=== PATIENT | male | born 1940 | race Caucasian/White ===

== ENCOUNTER 2017-02-20 10:51 | Outpatient (CLI) | payer MEDICARE | END 2017-02-20 10:52 | disposition home or self-care (01) | LOC: MADLAB 10:51 | PROVIDERS: ATTEND Urology | DX: C61 Malignant neoplasm of prostate (principal) | CPT/HCPCS: 36415; 84153 ==

== ENCOUNTER 2017-04-03 10:31 | Outpatient (CLI) | payer MEDICARE ==
[2017-04-03 11:06] LABS: Hemoglobin A1c 7.5 % (4.0-6.0)
[2017-04-03 11:19] LABS: ALT (SGPT) 21 U/L (8-55); AST (SGOT) 15 U/L (5-34); Albumin 3.9 g/dL (3.4-4.8); Alkaline Phosphatase 84 U/L (40-150); Anion Gap 11 mmol/L (10-20); BUN (Urea Nitrogen) 13 mg/dL (8.4-25.7); Bilirubin, Total 0.6 mg/dL (0.2-1.2); Calc. Creatinine Clearance 0 mL/min (70-130); Calcium 9.3 mg/dL (7.8-10.44); Carbon Dioxide 26 mmol/L (23-31); Chloride 103 mmol/L (98-107); Cholesterol 166 mg/dl (< 200 Desired); Estimated GFR-MDRD 76; Globulin 3.3 g/dL (2.4-3.5); Glucose 211 mg/dL (83-110); HDL Cholesterol 33 mg/dL (>60 Neg Risk); LDL Cholesterol, Calculated 88 mg/dL; Potassium 3.8 mmol/L (3.5-5.1); Protein, Total 7.2 g/dL (5.8-8.1); Sodium 136 mmol/L (136-145); Triglycerides 226 mg/dL (Less than 150)
[2017-04-03 11:22] LABS: #Basophils 0.1 thou/uL (0.0-0.2); #Eosinphils 0.1 thou/uL (0.0-0.7); #Lymphocytes 1.5 thou/uL (1.20-3.40); #Monocytes 0.5 thou/uL (0.11-0.59); #Neutrophils 4.7 thou/uL (1.40-6.50); %Basophils 1.2 % (0.0-1.0); %Monocytes 7.3 % (0.0-10.0); %Neutrophils 67.5 % (42.0-75.0); Hemoglobin 15.6 g/dL (14.0-18.0); Mean Corpuscular HGB CONC 34.3 g/dL (32.0-36.0); Mean Corpuscular Hemoglobin 29.8 pg (27.0-31.0); Mean Corpuscular Volume 86.8 fl (80.0-94.0); Mean Platelet Volume 7.5 fL (7.4-10.4); Platelet Count 241 thou/uL (130-400); RBC Distribution Width 11.5 % (11.5-14.5); Red Blood Cell (RBC) Count 5.25 mill/uL (4.70-6.10)
[2017-04-03 16:11] LABS: Thyroid Stimulating Hormone 2.4646 uIU/mL (0.35-4.94)
[2017-04-03 17:26] LABS: Creatinine, Urine 35.11 mg/dL (63-166); Microalbumin Urine 9.6 mg/dL (0.5-50.0); Microalbumin/Creat Ratio 273.4 mg/g (Less than 30)
[2017-04-03 17:40] LABS: Vitamin D, 25 Hydroxy 33.7 ng/ml (> 30.0)
== END 2017-04-03 10:32 | disposition home or self-care (01) ==
LOC: MADLABBHPM 10:31
PROVIDERS: ATTEND Family Medicine
DX: E78.5 Hyperlipidemia, unspecified (principal); I10 Essential (primary) hypertension; M11.20 Other chondrocalcinosis, unspecified site; E11.9 Type 2 diabetes mellitus without complications; K21.9 Gastro-esophageal reflux disease without esophagitis
CPT/HCPCS: 36415; 80053; 80061; 82043; 82306; 83036; 84443; 85025

== ENCOUNTER 2018-07-10 14:46 | Outpatient (CLI) | payer MEDICARE ==
--- NOTE | 2018-07-10 15:53 | RAD ---
RIGHT ANKLE THREE VIEWS: History: 78-year-old male with right ankle injury following a twisting injury two days ago. FINDINGS: Medial and more marked lateral diffuse swelling of the lower leg and ankle. Nondisplaced oblique frac ture through the distal fibula. 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 No talar dome osteo chondral lesion. IMPRESSION: Nondisplaced fracture through the distal fibula with soft tissue swelling. POS: [facility]
== END 2018-07-10 14:47 | disposition home or self-care (01) ==
LOC: MADRAD 14:46
PROVIDERS: ATTEND Family Medicine
DX: M25.571 Pain in right ankle and joints of right foot (principal); S82.831A Other fracture of upper and lower end of right fibula, initial encounter for closed fracture

== ENCOUNTER 2018-08-28 13:34 | Outpatient (CLI) | payer MEDICARE ==
--- NOTE | 2018-08-28 15:59 | RAD ---
TWO VIEWS RIGHT ANKLE: DATE: 08/28/2018. HISTORY: Followup fracture right ankle. COMPARISON: 07/10/2018. FINDINGS: The fracture is better seen on the oblique view on the prior exam. The obliquely oriented fracture o f the fibula better seen on the oblique view of the right ankle on the prior study is not definitivel y visualized on this exam. No obvious fracture is seen. There is a questionable subtle lucency whic h may represent the previously seen fracture in the distal right fibula. No significant callus forma tion is appreciated. Ankle mortise is congruent. Plantar calcaneal enthesophyte is present. Vascul ar calcifications are seen about the ankle. IMPRESSION: 1. No obvious fracture is appreciated. There is suggestion of a subtle lucency in the region of the previously noted fracture of the right ankle which could be related to residual fracture, but there is certainly no displaced fracture visualized. There has been improvement in subcutaneous soft tissu e swelling about the ankle. POS: [facility]
== END 2018-08-28 13:35 | disposition home or self-care (01) ==
LOC: MADRAD 13:34
PROVIDERS: ATTEND Orthopaedic Surgery
DX: S82.64XA Nondisplaced fracture of lateral malleolus of right fibula, initial encounter for closed fracture (principal); M25.471 Effusion, right ankle

== ENCOUNTER 2021-01-04 14:54 | Outpatient (CLI) | payer MEDICARE ==
[2021-01-04 21:35] LABS: #Basophils 0.1 thou/uL (0.0-0.2); #Eosinphils 0.1 thou/uL (0.0-0.7); #Lymphocytes 2.1 thou/uL (1.20-3.40); #Monocytes 0.6 thou/uL (0.11-0.59); #Neutrophils 6.5 thou/uL (1.40-6.50); %Basophils 0.6 % (0.0-1.0); %Eosinophils 1.6 % (0.0-10.0); %Lymphocytes 22.2 % (21.0-51.0); %Neutrophils 69.7 % (42.0-75.0); Hemoglobin 15.9 g/dL (14.0-18.0); Mean Corpuscular HGB CONC 34.1 g/dL (32.0-36.0); Mean Corpuscular Hemoglobin 30.7 pg (27.0-31.0); Mean Corpuscular Volume 89.8 fL (78.0-98.0); Mean Platelet Volume 7.7 fL (7.4-10.4); Platelet Count 283 thou/uL (130-400); RBC Distribution Width 11.8 % (11.5-14.5); Red Blood Cell (RBC) Count 5.18 mill/uL (4.70-6.10); White Blood Cell (WBC) Count 9.3 thou/uL (4.8-10.8)
[2021-01-04 21:50] LABS: ALT (SGPT) 15 U/L (8-55); AST (SGOT) 15 U/L (5-34); Albumin 4.3 g/dL (3.4-4.8); Alkaline Phosphatase 84 U/L (40-110); Anion Gap 13 mmol/L (10-20); BUN (Urea Nitrogen) 10 mg/dL (8.4-25.7); Bilirubin, Total 0.5 mg/dL (0.2-1.2); Calc. Creatinine Clearance 0 mL/min (70-130); Calcium 9.2 mg/dL (7.8-10.44); Carbon Dioxide 28 mmol/L (23-31); Cardiac Risk 3.3 (Less than 4.5); Chloride 103 mmol/L (98-107); Cholesterol 143 mg/dl (< 200 Desired); Globulin 2.9 g/dL (2.4-3.5); Glucose 151 mg/dL (83-110); HDL Cholesterol 44 mg/dL (>60 Neg Risk); LDL Cholesterol, Calculated 70 mg/dL; Potassium 3.5 mmol/L (3.5-5.1); Protein, Total 7.2 g/dL (5.8-8.1); Sodium 140 mmol/L (136-145); Triglycerides 145 mg/dL (Less than 150)
[2021-01-04 22:02] LABS: Creatinine, Urine 24.3 mg/dL (63-166); Microalbumin Urine 36.7 mg/dL (0.5-50.0); Microalbumin/Creat Ratio 1510.3 mg/g (Less than 30)
== END 2021-01-04 14:55 | disposition home or self-care (01) ==
LOC: MADLABBHPM 14:54 → MADLAB 14:55
PROVIDERS: ATTEND Family Medicine
DX: E78.2 Mixed hyperlipidemia (principal); E11.9 Type 2 diabetes mellitus without complications
CPT/HCPCS: 36415; 80053; 80061; 82043; 85025

== ENCOUNTER 2022-05-14 16:52 | Outpatient (CLI) | payer MEDICARE, OTHER | END 2022-05-14 16:53 | disposition home or self-care (01) | LOC: MADRAD 16:52 | PROVIDERS: ATTEND Family Medicine | DX: J44.0 Chronic obstructive pulmonary disease with (acute) lower respiratory infection (principal); I50.9 Heart failure, unspecified | CPT/HCPCS: 71046 ==

== ENCOUNTER 2022-05-18 15:21 | Emergency (ER) | payer OTHER ==
[2022-05-18] MEDS ORDERED: Nitroglycerin 2% Ointment 1 INCH/1 GM Packet ONE (16:21)
[2022-05-18] MEDS ORDERED: Furosemide 40 MG/4 ML VIAL ONE (16:21)
[2022-05-18] MEDS ORDERED: Aspirin Chewable 81 MG TAB ONE (16:21)
[2022-05-18 16:29] LABS: #Basophils 0.1 thou/uL (0.0-0.2); #Eosinphils 0.1 thou/uL (0.0-0.7); #Lymphocytes 1.2 thou/uL (1.20-3.40); #Monocytes 0.5 thou/uL (0.11-0.59); #Neutrophils 5.5 thou/uL (1.40-6.50); %Basophils 0.8 % (0.0-1.0); %Eosinophils 1.2 % (0.0-10.0); %Lymphocytes 16.2 % (21.0-51.0); %Monocytes 7.2 % (0.0-10.0); %Neutrophils 74.5 % (42.0-75.0); Hemoglobin 14.8 g/dL (14.0-18.0); Mean Corpuscular HGB CONC 33.3 g/dL (32.0-36.0); Mean Corpuscular Hemoglobin 30.1 pg (27.0-31.0); Mean Corpuscular Volume 90.5 fL (78.0-98.0); Mean Platelet Volume 8.6 fL (7.4-10.4); Platelet Count 259 thou/uL (130-400); RBC Distribution Width 11.7 % (11.5-14.5); Red Blood Cell (RBC) Count 4.91 mill/uL (4.70-6.10); White Blood Cell (WBC) Count 7.4 thou/uL (4.8-10.8)
[2022-05-18 16:43] LABS: ALT (SGPT) 45 U/L (8-55); AST (SGOT) 30 U/L (5-34); Albumin 4.1 g/dL (3.4-4.8); Alkaline Phosphatase 65 U/L (40-110); Anion Gap 15 mmol/L (10-20); BUN (Urea Nitrogen) 16 mg/dL (8.4-25.7); Bilirubin, Total 1.2 mg/dL (0.2-1.2); Calc. Creatinine Clearance 0 mL/min (70-130); Calcium 9.8 mg/dL (7.8-10.44); Carbon Dioxide 25 mmol/L (23-31); Chloride 105 mmol/L (98-107); Estimated GFR 54; Globulin 3.1 g/dL (2.4-3.5); Glucose 133 mg/dL (83-110); Potassium 3.6 mmol/L (3.5-5.1); Protein, Total 7.2 g/dL (5.8-8.1); Sodium 141 mmol/L (136-145)
[2022-05-18 17:00] LABS: CKMB 3.2 ng/mL (0-6.6)
== END 2022-05-18 18:54 | disposition short-term general hospital (02) ==
LOC: MADERS 15:21
DX: I11.0 Hypertensive heart disease with heart failure (principal); I50.9 Heart failure, unspecified; R77.8 Other specified abnormalities of plasma proteins; E11.9 Type 2 diabetes mellitus without complications; K21.9 Gastro-esophageal reflux disease without esophagitis; E78.00 Pure hypercholesterolemia, unspecified; M10.9 Gout, unspecified; J44.9 Chronic obstructive pulmonary disease, unspecified; Z85.46 Personal history of malignant neoplasm of prostate; Z79.84 Long term (current) use of oral hypoglycemic drugs; Z79.899 Other long term (current) drug therapy
CPT/HCPCS: 71045; 82553; 84484; 85025; 93005; 94760; 96374; J1940

== ENCOUNTER 2022-06-21 12:12 | Inpatient (IN) | payer OTHER ==
[2022-06-21 17:03] LABS: SARS-CoV-2 NAA Rapid Test Not Detected (NotDetected)
[2022-06-21] MEDS ORDERED: Amiodarone 200 MG TAB PO SCH (21:00)
[2022-06-21] MEDS ORDERED: Famotidine 20 MG TAB PO SCH (21:00)
[2022-06-21] MEDS: Enoxaparin Sodium 40 MG/0.4 ML SYRINGE SC SCH (21:13)
[2022-06-21] MEDS: Atorvastatin Calcium 40 MG TAB PO SCH (21:14)
[2022-06-21] MEDS: Gabapentin 100 MG CAP PO SCH (21:14)
[2022-06-21] MEDS: HYDROcodone/Acetaminophen 5/325 mg Tablet PO PRN (22:22)
[2022-06-21] MEDS ORDERED: Docusate 100 MG CAP PO PRN (22:42)
[2022-06-22 05:56] LABS: #Basophils 0.1 thou/uL (0.0-0.2); #Lymphocytes 1.5 thou/uL (1.20-3.40); #Monocytes 0.6 thou/uL (0.11-0.59); #Neutrophils 10.5 thou/uL (1.40-6.50); %Basophils 0.6 % (0.0-1.0); %Eosinophils 0.1 % (0.0-10.0); %Lymphocytes 11.7 % (21.0-51.0); %Neutrophils 82.6 % (42.0-75.0); Hemoglobin 11.3 g/dL (14.0-18.0); Mean Corpuscular HGB CONC 32.2 g/dL (32.0-36.0); Mean Corpuscular Volume 90.2 fL (78.0-98.0); Mean Platelet Volume 8.1 fL (7.4-10.4); Platelet Count 351 thou/uL (130-400); RBC Distribution Width 11.6 % (11.5-14.5); Red Blood Cell (RBC) Count 3.89 mill/uL (4.70-6.10); White Blood Cell (WBC) Count 12.8 thou/uL (4.8-10.8)
[2022-06-22 06:08] LABS: Anion Gap 13 mmol/L (10-20); BUN (Urea Nitrogen) 35 mg/dL (8.4-25.7); Calc. Creatinine Clearance 56 mL/min (70-130); Calcium 8.8 mg/dL (7.8-10.44); Carbon Dioxide 25 mmol/L (23-31); Chloride 100 mmol/L (98-107); Estimated GFR 50; Potassium 4.2 mmol/L (3.5-5.1); Sodium 134 mmol/L (136-145)
[2022-06-22 06:12] LABS: Critical Call Chemistry IS NOT CRITICAL; Glucose 181 mg/dL (83-110)
[2022-06-22] MEDS: Spironolactone 25 MG TAB PO SCH (09:02)
[2022-06-22] MEDS: Aspirin 81 mg Enteric Coated Tablet PO SCH (09:02)
[2022-06-22] MEDS: Amiodarone 200 MG TAB PO SCH (09:02)
[2022-06-22] MEDS: Ferrous Sulfate 325 MG TAB PO SCH (09:02)
[2022-06-22] MEDS: HYDROcodone/Acetaminophen 5/325 mg Tablet PO PRN ×3 (09:57→21:01)
[2022-06-22] MEDS ORDERED: Dextrose 50% Abboject 50 ML SYRINGE IVP PRN (12:30)
[2022-06-22] MEDS ORDERED: Dextrose 5% in Water 1,000 ML IV PRN (12:30)
[2022-06-22] MEDS ORDERED: HumaLOG 300 UNITS/3 ML VIAL SC PRN ×2 (12:30)
[2022-06-22] MEDS: Atorvastatin Calcium 40 MG TAB PO SCH (20:51)
[2022-06-22] MEDS: Gabapentin 100 MG CAP PO SCH (20:51)
[2022-06-22] MEDS: Enoxaparin Sodium 40 MG/0.4 ML SYRINGE SC SCH (20:52)
[2022-06-23] MEDS: HYDROcodone/Acetaminophen 5/325 mg Tablet PO PRN ×2 (03:19→13:56)
[2022-06-23] MEDS: Ferrous Sulfate 325 MG TAB PO SCH (08:21)
[2022-06-23] MEDS: Amiodarone 200 MG TAB PO SCH (08:21)
[2022-06-23] MEDS: Aspirin 81 mg Enteric Coated Tablet PO SCH (08:21)
[2022-06-23] MEDS: Spironolactone 25 MG TAB PO SCH (08:21)
[2022-06-23] MEDS: Gabapentin 100 MG CAP PO SCH (21:03)
[2022-06-23] MEDS: Enoxaparin Sodium 40 MG/0.4 ML SYRINGE SC SCH (21:04)
[2022-06-23] MEDS: Atorvastatin Calcium 40 MG TAB PO SCH (21:04)
[2022-06-24] MEDS: Amiodarone 200 MG TAB PO SCH (08:32)
[2022-06-24] MEDS: Ferrous Sulfate 325 MG TAB PO SCH (08:32)
[2022-06-24] MEDS: Spironolactone 25 MG TAB PO SCH (08:32)
[2022-06-24] MEDS: Aspirin 81 mg Enteric Coated Tablet PO SCH (08:32)
[2022-06-24] MEDS ORDERED: Hydrocortisone 1% Cream 30 GM TUBE TOP PRN (19:33)
[2022-06-24] MEDS: Atorvastatin Calcium 40 MG TAB PO SCH (21:02)
[2022-06-24] MEDS: Enoxaparin Sodium 40 MG/0.4 ML SYRINGE SC SCH (21:02)
[2022-06-24] MEDS: Gabapentin 100 MG CAP PO SCH (21:03)
[2022-06-25] MEDS: Ferrous Sulfate 325 MG TAB PO SCH (08:29)
[2022-06-25] MEDS: Amiodarone 200 MG TAB PO SCH (08:30)
[2022-06-25] MEDS: Spironolactone 25 MG TAB PO SCH (08:30)
[2022-06-25] MEDS: Aspirin 81 mg Enteric Coated Tablet PO SCH (08:30)
[2022-06-25] MEDS ORDERED: Carvedilol 3.125 MG TAB PO SCH (13:15)
[2022-06-25] MEDS: Enoxaparin Sodium 40 MG/0.4 ML SYRINGE SC SCH (20:28)
[2022-06-25] MEDS: Atorvastatin Calcium 40 MG TAB PO SCH (20:29)
[2022-06-25] MEDS: Carvedilol 3.125 MG TAB PO SCH (20:29)
[2022-06-25] MEDS: HYDROcodone/Acetaminophen 5/325 mg Tablet PO PRN (20:35)
[2022-06-25] MEDS: Gabapentin 100 MG CAP PO SCH (20:50)
[2022-06-26] MEDS: HYDROcodone/Acetaminophen 5/325 mg Tablet PO PRN ×3 (06:20→20:32)
[2022-06-26] MEDS: Ferrous Sulfate 325 MG TAB PO SCH (08:18)
[2022-06-26] MEDS: Amiodarone 200 MG TAB PO SCH (08:18)
[2022-06-26] MEDS: Spironolactone 25 MG TAB PO SCH (08:18)
[2022-06-26] MEDS: metFORMIN 500 MG TAB PO SCH (08:18)
[2022-06-26] MEDS: Aspirin 81 mg Enteric Coated Tablet PO SCH (08:19)
[2022-06-26] MEDS: Carvedilol 3.125 MG TAB PO SCH ×2 (08:19→20:28)
[2022-06-26] MEDS ORDERED: Nystatin Cream 15 GM TUBE TOP SCH (09:00)
[2022-06-26] MEDS ORDERED: Acetaminophen 325 MG TAB PO PRN (09:04)
[2022-06-26] MEDS: Enoxaparin Sodium 40 MG/0.4 ML SYRINGE SC SCH (20:28)
[2022-06-26] MEDS: Atorvastatin Calcium 40 MG TAB PO SCH (20:28)
[2022-06-27] MEDS: Aspirin 81 mg Enteric Coated Tablet PO SCH (10:07)
[2022-06-27] MEDS: Carvedilol 3.125 MG TAB PO SCH ×2 (10:07→21:17)
[2022-06-27] MEDS: Amiodarone 200 MG TAB PO SCH (10:07)
[2022-06-27] MEDS: metFORMIN 500 MG TAB PO SCH (10:10)
[2022-06-27] MEDS: Spironolactone 25 MG TAB PO SCH (10:10)
[2022-06-27] MEDS: Ferrous Sulfate 325 MG TAB PO SCH (10:10)
[2022-06-27] MEDS ORDERED: Albuterol 200 PUFF (6.7GM INHALER) INH PRN (20:46)
[2022-06-27] MEDS: Enoxaparin Sodium 40 MG/0.4 ML SYRINGE SC SCH (21:18)
[2022-06-27] MEDS: Atorvastatin Calcium 40 MG TAB PO SCH (21:18)
[2022-06-27] MEDS: Gabapentin 100 MG CAP PO SCH (21:21)
[2022-06-27] MEDS: HYDROcodone/Acetaminophen 5/325 mg Tablet PO PRN (22:54)
[2022-06-27] MEDS: Melatonin 3 MG TAB PO PRN (23:07)
[2022-06-28] MEDS: metFORMIN 500 MG TAB PO SCH (08:39)
[2022-06-28] MEDS: Amiodarone 200 MG TAB PO SCH (08:39)
[2022-06-28] MEDS: Spironolactone 25 MG TAB PO SCH (08:39)
[2022-06-28] MEDS: Ferrous Sulfate 325 MG TAB PO SCH (08:39)
[2022-06-28] MEDS: Carvedilol 3.125 MG TAB PO SCH ×2 (08:39→20:46)
[2022-06-28] MEDS: Aspirin 81 mg Enteric Coated Tablet PO SCH (08:40)
[2022-06-28] MEDS: HYDROcodone/Acetaminophen 5/325 mg Tablet PO PRN (20:44)
[2022-06-28] MEDS: Gabapentin 100 MG CAP PO SCH (20:46)
[2022-06-28] MEDS: Atorvastatin Calcium 40 MG TAB PO SCH (20:46)
[2022-06-28] MEDS: Melatonin 3 MG TAB PO PRN (20:46)
[2022-06-28] MEDS: Enoxaparin Sodium 40 MG/0.4 ML SYRINGE SC SCH (20:50)
[2022-06-29] MEDS: Carvedilol 3.125 MG TAB PO SCH ×2 (08:45→21:15)
[2022-06-29] MEDS: metFORMIN 500 MG TAB PO SCH (08:45)
[2022-06-29] MEDS: Ferrous Sulfate 325 MG TAB PO SCH (08:45)
[2022-06-29] MEDS: Amiodarone 200 MG TAB PO SCH (08:45)
[2022-06-29] MEDS: Aspirin 81 mg Enteric Coated Tablet PO SCH (08:45)
[2022-06-29] MEDS: Spironolactone 25 MG TAB PO SCH (08:45)
[2022-06-29] MEDS: Enoxaparin Sodium 40 MG/0.4 ML SYRINGE SC SCH (21:15)
[2022-06-29] MEDS: Atorvastatin Calcium 40 MG TAB PO SCH (21:15)
[2022-06-29] MEDS: Gabapentin 100 MG CAP PO SCH (21:16)
[2022-06-30] MEDS: Melatonin 3 MG TAB PO PRN (00:10)
[2022-06-30] MEDS: metFORMIN 500 MG TAB PO SCH (08:58)
[2022-06-30] MEDS: Spironolactone 25 MG TAB PO SCH (08:58)
[2022-06-30] MEDS: Amiodarone 200 MG TAB PO SCH (08:58)
[2022-06-30] MEDS: Aspirin 81 mg Enteric Coated Tablet PO SCH (08:58)
[2022-06-30] MEDS: Ferrous Sulfate 325 MG TAB PO SCH (08:58)
[2022-06-30] MEDS: Carvedilol 3.125 MG TAB PO SCH ×2 (08:58→20:49)
[2022-06-30] MEDS: Atorvastatin Calcium 40 MG TAB PO SCH (20:48)
[2022-06-30] MEDS: Enoxaparin Sodium 40 MG/0.4 ML SYRINGE SC SCH (20:49)
[2022-06-30] MEDS: Gabapentin 100 MG CAP PO SCH (20:49)
[2022-06-30] MEDS ORDERED: Gabapentin 100 MG CAP PO SCH (21:00)
[2022-07-01] MEDS: Melatonin 3 MG TAB PO PRN ×2 (01:54→23:37)
[2022-07-01] MEDS: HYDROcodone/Acetaminophen 5/325 mg Tablet PO PRN (03:43)
[2022-07-01] MEDS: Spironolactone 25 MG TAB PO SCH (08:45)
[2022-07-01] MEDS: metFORMIN 500 MG TAB PO SCH (08:45)
[2022-07-01] MEDS: Carvedilol 3.125 MG TAB PO SCH ×2 (08:45→21:00)
[2022-07-01] MEDS: Aspirin 81 mg Enteric Coated Tablet PO SCH (08:45)
[2022-07-01] MEDS: Amiodarone 200 MG TAB PO SCH (08:45)
[2022-07-01] MEDS: Ferrous Sulfate 325 MG TAB PO SCH (08:45)
[2022-07-01 20:29] VITALS: TEMP 97.6
[2022-07-01] MEDS: Atorvastatin Calcium 40 MG TAB PO SCH (21:00)
[2022-07-01] MEDS: Enoxaparin Sodium 40 MG/0.4 ML SYRINGE SC SCH (21:01)
[2022-07-01] MEDS: Gabapentin 100 MG CAP PO SCH (21:01)
[2022-07-02] MEDS: HYDROcodone/Acetaminophen 5/325 mg Tablet PO PRN (02:29)
[2022-07-02 07:53] VITALS: BP 120/70
[2022-07-02] MEDS: metFORMIN 500 MG TAB PO SCH (08:24)
[2022-07-02] MEDS: Ferrous Sulfate 325 MG TAB PO SCH (08:24)
[2022-07-02] MEDS: Carvedilol 3.125 MG TAB PO SCH ×2 (08:24→18:27)
[2022-07-02] MEDS: Aspirin 81 mg Enteric Coated Tablet PO SCH (08:24)
[2022-07-02] MEDS: Spironolactone 25 MG TAB PO SCH (08:24)
[2022-07-02] MEDS: Amiodarone 200 MG TAB PO SCH (08:24)
[2022-07-02 08:37] LABS: Mean Corpuscular HGB CONC 32.4 g/dL (32.0-36.0); Mean Corpuscular Hemoglobin 30.4 pg (27.0-31.0); Mean Corpuscular Volume 93.7 fL (78.0-98.0); Mean Platelet Volume 7.3 fL (7.4-10.4); Platelet Count 388 thou/uL (130-400); RBC Distribution Width 13.4 % (11.5-14.5); Red Blood Cell (RBC) Count 3.94 mill/uL (4.70-6.10); White Blood Cell (WBC) Count 6.6 thou/uL (4.8-10.8)
[2022-07-02 08:56] LABS: Anion Gap 13 mmol/L (10-20); BUN (Urea Nitrogen) 20 mg/dL (8.4-25.7); Calc. Creatinine Clearance 89 mL/min (70-130); Carbon Dioxide 24 mmol/L (23-31); Chloride 106 mmol/L (98-107); Estimated GFR 54; Glucose 120 mg/dL (83-110); Potassium 4.3 mmol/L (3.5-5.1); Sodium 139 mmol/L (136-145)
[2022-07-02 12:23] VITALS: BMI 46.3
[2022-07-02] MEDS: Atorvastatin Calcium 40 MG TAB PO SCH (18:26)
[2022-07-02] MEDS: Gabapentin 100 MG CAP PO SCH (18:27)
[2022-07-02] MEDS: Enoxaparin Sodium 40 MG/0.4 ML SYRINGE SC SCH (18:27)
[2022-07-02] MEDS ORDERED: Gabapentin 100 MG CAP PO SCH (21:00)
== END 2022-07-02 19:08 | disposition home or self-care (01) | DRG 948 ==
LOC: MADMS 13:44
PROVIDERS: ADMIT Family Medicine; ATTEND Family Medicine
DX: R53.1 Weakness (principal); I50.42 Chronic combined systolic (congestive) and diastolic (congestive) heart failure; R53.81 Other malaise; E78.5 Hyperlipidemia, unspecified; I25.10 Atherosclerotic heart disease of native coronary artery without angina pectoris; I25.5 Ischemic cardiomyopathy; E11.40 Type 2 diabetes mellitus with diabetic neuropathy, unspecified; I11.0 Hypertensive heart disease with heart failure; J44.9 Chronic obstructive pulmonary disease, unspecified; M10.9 Gout, unspecified; D64.89 Other specified anemias; Z48.812 Encounter for surgical aftercare following surgery on the circulatory system; E11.65 Type 2 diabetes mellitus with hyperglycemia; E78.2 Mixed hyperlipidemia; Z20.822 Contact with and (suspected) exposure to COVID-19; Z95.1 Presence of aortocoronary bypass graft; Z98.890 Other specified postprocedural states; Z88.1 Allergy status to other antibiotic agents; Z85.46 Personal history of malignant neoplasm of prostate; Z87.891 Personal history of nicotine dependence; Z92.3 Personal history of irradiation; Z88.8 Allergy status to other drugs, medicaments and biological substances; Z79.82 Long term (current) use of aspirin; Z79.899 Other long term (current) drug therapy
CPT/HCPCS: 36416; 80048; 85025; 85027; 87811; J1650; J1815; U0002

== ENCOUNTER 2022-09-20 10:31 | Emergency (ER) | payer OTHER ==
[2022-09-20 11:24] LABS: #Eosinphils 0.2 thou/uL (0.0-0.7); #Lymphocytes 0.9 thou/uL (1.20-3.40); #Monocytes 0.6 thou/uL (0.11-0.59); #Neutrophils 5.9 thou/uL (1.40-6.50); %Basophils 0.6 % (0.0-1.0); %Eosinophils 2.1 % (0.0-10.0); %Lymphocytes 11.9 % (21.0-51.0); %Monocytes 7.9 % (0.0-10.0); %Neutrophils 77.5 % (42.0-75.0); Hemoglobin 13.7 g/dL (14.0-18.0); Mean Corpuscular HGB CONC 32.7 g/dL (32.0-36.0); Mean Corpuscular Hemoglobin 29.2 pg (27.0-31.0); Mean Corpuscular Volume 89.2 fl (78.0-98.0); Mean Platelet Volume 7.4 fL (7.4-10.4); Platelet Count 265 10x3/uL (130-400); RBC Distribution Width 13.6 % (11.5-14.5); White Blood Cell (WBC) Count 7.6 10x3/uL (4.8-10.8)
[2022-09-20 11:31] LABS: INR-International Normal Ratio 1.1
[2022-09-20] MEDS ORDERED: Furosemide 40 MG/4 ML VIAL ONE (11:32)
[2022-09-20 11:43] LABS: ALT (SGPT) 19 U/L (8-55); AST (SGOT) 14 U/L (5-34); Albumin 3.6 g/dL (3.4-4.8); Alkaline Phosphatase 91 U/L (40-110); Anion Gap 12 mmol/L (10-20); BUN (Urea Nitrogen) 16 mg/dL (8.4-25.7); Bilirubin, Total 0.8 mg/dL (0.2-1.2); Calc. Creatinine Clearance 0 mL/min (70-130); Calcium 9.1 mg/dL (7.8-10.44); Carbon Dioxide 24 mmol/L (23-31); Chloride 107 mmol/L (98-107); Estimated GFR 50; Glucose 174 mg/dL (83-110); Potassium 3.3 mmol/L (3.5-5.1); Protein, Total 6.6 g/dL (5.8-8.1); Sodium 140 mmol/L (136-145)
[2022-09-20 12:01] LABS: CKMB 2.4 ng/mL (0-6.6)
== END 2022-09-20 12:40 | disposition home or self-care (01) ==
LOC: MADERS 10:31
DX: I11.0 Hypertensive heart disease with heart failure (principal); I50.9 Heart failure, unspecified; E11.9 Type 2 diabetes mellitus without complications; K21.9 Gastro-esophageal reflux disease without esophagitis; E78.00 Pure hypercholesterolemia, unspecified; J44.9 Chronic obstructive pulmonary disease, unspecified; Z79.899 Other long term (current) drug therapy; Z79.82 Long term (current) use of aspirin; Z79.84 Long term (current) use of oral hypoglycemic drugs
CPT/HCPCS: 71045; 80053; 82553; 83735; 83880; 84484; 85025; 85610; 93005; 96374; J1940; J7620

== ENCOUNTER 2023-06-02 11:30 | Emergency (ER) | payer OTHER ==
[2023-06-02] MEDS ORDERED: Boostrix 0.5 ML (Tdap) VIAL (>/=7 yrs of age) ONE (11:52)
[2023-06-02 12:06] LABS: #Basophils 0.1 thou/uL (0.0-0.2); #Eosinphils 0.2 thou/uL (0.0-0.7); #Lymphocytes 1.4 thou/uL (1.20-3.40); #Monocytes 0.6 thou/uL (0.11-0.59); #Neutrophils 4.9 thou/uL (1.40-6.50); %Basophils 1.5 % (0.0-1.0); %Eosinophils 2.4 % (0.0-10.0); %Lymphocytes 19.9 % (21.0-51.0); %Monocytes 7.8 % (0.0-10.0); %Neutrophils 68.4 % (42.0-75.0); Hemoglobin 16.9 g/dL (14.0-18.0); Mean Corpuscular HGB CONC 32.6 g/dL (32.0-36.0); Mean Corpuscular Hemoglobin 28.8 pg (27.0-31.0); Mean Corpuscular Volume 88.4 fl (78.0-98.0); Mean Platelet Volume 8.2 fL (7.4-10.4); Platelet Count 235 10x3/uL (130-400); RBC Distribution Width 14.7 % (11.5-14.5); Red Blood Cell (RBC) Count 5.89 mill/uL (4.70-6.10); White Blood Cell (WBC) Count 7.1 10x3/uL (4.8-10.8)
[2023-06-02 12:12] LABS: INR-International Normal Ratio 1.1; Prothrombin Time 14.5 sec (12.0-14.7)
[2023-06-02 12:13] LABS: PTT 32.4 sec (22.9-36.1)
[2023-06-02] MEDS ORDERED: Lidocaine 1% (PF) 30 ML VIAL ONE (12:20)
[2023-06-02 12:22] LABS: ALT (SGPT) 16 U/L (8-55); AST (SGOT) 16 U/L (5-34); Alkaline Phosphatase 88 U/L (40-110); Anion Gap 13 mmol/L (10-20); BUN (Urea Nitrogen) 21 mg/dL (8.4-25.7); Bilirubin, Total 0.9 mg/dL (0.2-1.2); Calc. Creatinine Clearance 0 mL/min (70-130); Calcium 9.4 mg/dL (7.8-10.44); Carbon Dioxide 27 mmol/L (23-31); Chloride 105 mmol/L (98-107); Estimated GFR 52; Globulin 3.3 g/dL (2.4-3.5); Glucose 145 mg/dL (83-110); Potassium 3.8 mmol/L (3.5-5.1); Protein, Total 7.3 g/dL (5.8-8.1); Sodium 141 mmol/L (136-145)
[2023-06-02] MEDS ORDERED: CEFAZOLIN 2 GM VIAL ONE (13:30)
[2023-06-02] MEDS ORDERED: Sodium Chloride 0.9% 100 ML ONE (13:30)
== END 2023-06-02 15:23 | disposition home or self-care (01) ==
LOC: MADERS 11:30
DX: S62.631A Displaced fracture of distal phalanx of left index finger, initial encounter for closed fracture (principal); S61.211A Laceration without foreign body of left index finger without damage to nail, initial encounter; I11.0 Hypertensive heart disease with heart failure; I50.9 Heart failure, unspecified; K21.9 Gastro-esophageal reflux disease without esophagitis; E11.9 Type 2 diabetes mellitus without complications; E78.00 Pure hypercholesterolemia, unspecified; J44.9 Chronic obstructive pulmonary disease, unspecified; Z23 Encounter for immunization; W23.0XXA Caught, crushed, jammed, or pinched between moving objects, initial encounter
CPT/HCPCS: 12001; 36415; 80053; 85025; 85610; 85730; 90471; 90715; 96365; J2001; J3490

== ENCOUNTER 2023-10-19 08:03 | Emergency (ER) | payer OTHER ==
[2023-10-19] MEDS ORDERED: Aspirin Chewable 81 MG TAB ONE (08:30)
[2023-10-19] MEDS ORDERED: Ipratropium/Albuterol 3 ML NEB ONE (08:46)
[2023-10-19] MEDS ORDERED: Furosemide 40 MG (4 mL) VIAL ONE (08:46)
[2023-10-19 09:01] LABS: #Basophils 0.1 thou/uL (0.0-0.2); #Eosinphils 0.1 thou/uL (0.0-0.7); #Lymphocytes 1.1 thou/uL (1.20-3.40); #Monocytes 0.6 thou/uL (0.11-0.59); #Neutrophils 5.6 thou/uL (1.40-6.50); %Basophils 0.7 % (0.0-1.0); %Eosinophils 1.9 % (0.0-10.0); %Lymphocytes 15.2 % (21.0-51.0); %Monocytes 7.6 % (0.0-10.0); %Neutrophils 74.6 % (42.0-75.0); Hematocrit 49.5 % (42.0-52.0); Hemoglobin 16.2 g/dL (14.0-18.0); Mean Corpuscular HGB CONC 32.6 g/dL (32.0-36.0); Mean Corpuscular Hemoglobin 29.2 pg (27.0-31.0); Mean Corpuscular Volume 89.5 fl (78.0-98.0); Mean Platelet Volume 8.4 fL (7.4-10.4); Platelet Count 230 10x3/uL (130-400); RBC Distribution Width 13.5 % (11.5-14.5); Red Blood Cell (RBC) Count 5.53 mill/uL (4.70-6.10); White Blood Cell (WBC) Count 7.5 10x3/uL (4.8-10.8)
[2023-10-19 09:14] LABS: Troponin I Less than 0.010 ng/mL (< 0.028)
[2023-10-19 09:15] LABS: ALT (SGPT) 12 U/L (8-55); AST (SGOT) 12 U/L (5-34); Albumin 3.8 g/dL (3.4-4.8); Alkaline Phosphatase 85 U/L (40-110); Anion Gap 16 mmol/L (10-20); BUN (Urea Nitrogen) 21 mg/dL (8.4-25.7); Bilirubin, Total 1.1 mg/dL (0.2-1.2); Calc. Creatinine Clearance 0 mL/min (70-130); Calcium 9.1 mg/dL (7.8-10.44); Carbon Dioxide 20 mmol/L (23-31); Chloride 107 mmol/L (98-107); Estimated GFR 50; Glucose 206 mg/dL (83-110); Lipase 20 U/L (8-78); Potassium 3.8 mmol/L (3.5-5.1); Protein, Total 6.8 g/dL (5.8-8.1); Sodium 139 mmol/L (136-145)
[2023-10-19 09:31] LABS: SARS-CoV-2 NAA Rapid Test Not Detected (NotDetected)
[2023-10-19 10:09] LABS: Magnesium 2.2 mg/dL (1.6-2.6)
== END 2023-10-19 11:00 | disposition home or self-care (01) ==
LOC: MADERS 08:03
DX: I48.91 Unspecified atrial fibrillation (principal); E11.22 Type 2 diabetes mellitus with diabetic chronic kidney disease; I13.0 Hypertensive heart and chronic kidney disease with heart failure and stage 1 through stage 4 chronic kidney disease, or unspecified chronic kidney disease; N18.9 Chronic kidney disease, unspecified; J06.9 Acute upper respiratory infection, unspecified; K21.9 Gastro-esophageal reflux disease without esophagitis; E78.00 Pure hypercholesterolemia, unspecified; Z79.899 Other long term (current) drug therapy
CPT/HCPCS: 0240U; 71046; 80053; 83605; 83690; 83735; 83880; 84484; 85025; 85379; 87040; 93005; 94760; 96374; J1940; J7620

== ENCOUNTER 2023-11-21 20:32 | Emergency (ER) | payer OTHER ==
[2023-11-21 21:23] LABS: Band 3 % (5-11); Hematocrit 49.7 % (42.0-52.0); Hemoglobin 15.7 g/dL (14.0-18.0); Lymphocytes 14 % (21-51); MDiff Complete? YES; Mean Corpuscular HGB CONC 31.6 g/dL (32.0-36.0); Mean Corpuscular Hemoglobin 28.5 pg (27.0-31.0); Mean Corpuscular Volume 90.1 fl (78.0-98.0); Mean Platelet Volume 9.2 fL (7.4-10.4); Monocytes 7 % (0-10); Neutrophil 76 % (42-75); Platelet Count 153 10x3/uL (130-400); RBC Distribution Width 14.2 % (11.5-14.5); Red Blood Cell (RBC) Count 5.51 mill/uL (4.70-6.10); White Blood Cell (WBC) Count 7.1 10x3/uL (4.8-10.8)
[2023-11-21 21:42] LABS: Troponin I 0.051 ng/mL (< 0.028)
[2023-11-21 21:44] LABS: ALT (SGPT) 38 U/L (8-55); AST (SGOT) 30 U/L (5-34); Albumin 3.6 g/dL (3.4-4.8); Alkaline Phosphatase 84 U/L (40-110); Anion Gap 16 mmol/L (10-20); BUN (Urea Nitrogen) 23 mg/dL (8.4-25.7); Bilirubin, Total 1.2 mg/dL (0.2-1.2); Calc. Creatinine Clearance 0 mL/min (70-130); Calcium 8.4 mg/dL (7.8-10.44); Carbon Dioxide 21 mmol/L (23-31); Chloride 108 mmol/L (98-107); Estimated GFR 38; Globulin 2.5 g/dL (2.4-3.5); Glucose 151 mg/dL (83-110); Magnesium 2.2 mg/dL (1.6-2.6); Protein, Total 6.1 g/dL (5.8-8.1); Sodium 141 mmol/L (136-145)
[2023-11-21] MEDS ORDERED: Aspirin Chewable 81 MG TAB ONE (22:35)
[2023-11-21] MEDS ORDERED: Furosemide 40 MG (4 mL) VIAL ONE (22:35)
[2023-11-21] MEDS ORDERED: Carvedilol 6.25 MG TAB ONE (22:53)
[2023-11-21] MEDS ORDERED: Potassium Chloride 10 MEQ TAB ONE (22:53)
[2023-11-22 00:50] LABS: Troponin I 0.034 ng/mL (< 0.028)
== END 2023-11-22 01:05 | disposition short-term general hospital (02) ==
LOC: MADERS 20:32
DX: I11.0 Hypertensive heart disease with heart failure (principal); I50.9 Heart failure, unspecified; R79.89 Other specified abnormal findings of blood chemistry; Z95.0 Presence of cardiac pacemaker; R10.13 Epigastric pain; E11.9 Type 2 diabetes mellitus without complications; E78.00 Pure hypercholesterolemia, unspecified; J44.9 Chronic obstructive pulmonary disease, unspecified; Z79.899 Other long term (current) drug therapy
CPT/HCPCS: 36415; 71045; 80053; 83735; 83880; 84443; 84484; 85025; 93005; 96374; J1940

== ENCOUNTER 2024-05-31 19:29 | Emergency (ER) | payer OTHER ==
[2024-05-31] MEDS ORDERED: Lidocaine 1% w/Epinephrine 1:100K 20 ML VIAL ONE (19:51)
[2024-05-31] MEDS ORDERED: Bacitracin 1 PK ONE ×3 (20:46→21:03)
[2024-05-31] MEDS ORDERED: Boostrix 0.5 ML (Tdap) VIAL (>/=7 yrs of age) ONE (21:19)
== END 2024-05-31 21:45 | disposition home or self-care (01) ==
LOC: MADERS 19:29
DX: S41.111A Laceration without foreign body of right upper arm, initial encounter (principal); S51.011A Laceration without foreign body of right elbow, initial encounter; I11.0 Hypertensive heart disease with heart failure; I50.9 Heart failure, unspecified; E11.9 Type 2 diabetes mellitus without complications; E78.00 Pure hypercholesterolemia, unspecified; K21.9 Gastro-esophageal reflux disease without esophagitis; J44.9 Chronic obstructive pulmonary disease, unspecified; I48.91 Unspecified atrial fibrillation; Z23 Encounter for immunization; W10.9XXA Fall (on) (from) unspecified stairs and steps, initial encounter
CPT/HCPCS: 12032; 90471; 90715

== ENCOUNTER 2024-11-03 15:59 | Emergency (ER) | payer OTHER | END 2024-11-03 17:20 | disposition home or self-care (01) | LOC: MADERS 15:59 | DX: I83.009 Varicose veins of unspecified lower extremity with ulcer of unspecified site (principal); L97.909 Non-pressure chronic ulcer of unspecified part of unspecified lower leg with unspecified severity; L03.116 Cellulitis of left lower limb; E11.51 Type 2 diabetes mellitus with diabetic peripheral angiopathy without gangrene; I73.9 Peripheral vascular disease, unspecified; I11.0 Hypertensive heart disease with heart failure; I50.9 Heart failure, unspecified; Z79.82 Long term (current) use of aspirin; Z79.899 Other long term (current) drug therapy; Z95.0 Presence of cardiac pacemaker | CPT/HCPCS: 99283 ==

== ENCOUNTER 2025-06-09 09:26 | Outpatient (CLI) | payer OTHER ==
[2025-06-09 10:03] LABS: ALT (SGPT) 19 U/L (Less than 45); AST (SGOT) 25 U/L (11-34); Albumin 4.0 g/dL (3.1-4.5); Alkaline Phosphatase 82 U/L (40-110); Anion Gap 17 mmol/L (10-20); BUN (Urea Nitrogen) 29 mg/dL (8.4-25.7); Bilirubin, Total 0.8 mg/dL (0.3-1.2); Calc. Creatinine Clearance 0 mL/min (70-130); Calcium 9.0 mg/dL (7.8-10.44); Carbon Dioxide 25 mmol/L (23-31); Cardiac Risk 2.4 (Less than 4.5); Chloride 104 mmol/L (98-107); Cholesterol 95 mg/dl (< 200 Desired); Globulin 3.6 g/dL (2.4-3.5); Glucose 97 mg/dL (83-110); HDL Cholesterol 39 mg/dL (>60 Neg Risk); LDL Cholesterol, Calculated 41 mg/dL; Potassium 3.9 mmol/L (3.5-5.1); Sodium 142 mmol/L (136-145); Triglycerides 75 mg/dL (Less than 150)
== END 2025-06-09 09:27 | disposition home or self-care (01) ==
LOC: MADLAB 09:26
PROVIDERS: ATTEND Internal Medicine Cardiovascular Disease
DX: R60.0 Localized edema (principal); Z95.1 Presence of aortocoronary bypass graft
CPT/HCPCS: 36415; 80053; 80061; 84443